=== PATIENT | male | born 1995 | race American Indian/Alaskan Native ===

== ENCOUNTER 2016-09-25 06:12 | Emergency (ER) | payer OTHER ==
[2016-09-25 06:26] VITALS: BP 139/92
[2016-09-25 07:28] LABS: Bilirubin,Urine NEG (Negative); Blood,Urine NEG (Negative); Ketones,Urine NEG (Negative); Leukocyte Esterase,Urine SM (Negative); Mucus,Urine 2+ /HPF; Nitrite,Urine NEG (Negative); Protein,Urine <15 mg/dL mg/dL (Negative); Urobilinogen,Urine < 2.0 mg/dL (<2.0)
--- NOTE | 2016-09-25 07:49 | Emergency Department Report ---
ED Female HPI - General Chief complaint: Urogenital-Male Stated complaint: POSS STD Time Seen by Provider: 09/25/16 07:45 Source: patient Mode of arrival: Ambulatory Limitations: No Limitations - Related Data Allergies Allergy/AdvReac Type Severity Reaction Status Date / Time No Known Allergies Allergy Verified 09/25/16 06:16 ED Review of Systems ROS: Stated complaint: POSS STD Other details as noted in HPI ED Past Medical Hx - Past Medical History Previous Medical History?: No - Surgical History Past Surgical History?: No - Social History Smoking Status: Never Smoker Substance Use Type: Alcohol ED Physical Exam - General Limitations: No Limitations ED Course Vital Signs 09/25/16 06:18 Temperature 98.1 F Pulse Rate 57 L Respiratory 18 Rate Blood Pressure 139/92 [Right] O2 Sat by Pulse 100 Oximetry Critical care attestation.: If time is entered above; I have spent that time in minutes in the direct care of this critically ill patient, excluding procedure time. ED Disposition Condition: Stable
--- NOTE | 2016-09-25 08:08 | Emergency Department Report ---
ED Male HPI - General Chief complaint: Urogenital-Male Stated complaint: POSS STD Time Seen by Provider: 09/25/16 07:45 Source: patient Mode of arrival: Ambulatory Limitations: No Limitations - History of Present Illness Initial comments: Patient here reported that he thinks that he's been exposed to STD. He said he' s been having milky white discharge for a few days. He told triage nurse for a few days. Told me that discharge is for a few weeks. Denies any fever or chills. Reports a burning urination at times. Denies Any abdominal or back pain. Denies any urinary urgency or frequency or testicular pain. MD Complaint: penile discharge, dysuria -: week(s) Severity scale (0 -10): 0 new sexual partner discharge, dysuria. denies: swelling, mass, rash, urinary retention, blood in urine, fever, nausea/vomiting, incontinence - Related Data Sexually active: Yes Allergies Allergy/AdvReac Type Severity Reaction Status Date / Time No Known Allergies Allergy Verified 09/25/16 06:16 ED Review of Systems ROS: Stated complaint: POSS STD Other details as noted in HPI Comment: All other systems reviewed and negative Constitutional: denies: chills, fever ENT: denies: throat pain Respiratory: no symptoms reported Cardiovascular: denies: chest pain, palpitations, edema, syncope Gastrointestinal: denies: abdominal pain, nausea, vomiting Genitourinary: dysuria, discharge. denies: urgency, frequency, hematuria, testicular pain, testicular mass Musculoskeletal: denies: back pain, arthralgia Skin: denies: rash Neurological: denies: headache, weakness ED Past Medical Hx - Past Medical History Previous Medical History?: No - Surgical History Past Surgical History?: No - Family History Family history: hypertension - Social History Smoking Status: Never Smoker Substance Use Type: Alcohol ED Physical Exam - General Limitations: No Limitations General appearance: alert, in no apparent distress - Head Head exam: Present: atraumatic, normocephalic, normal inspection - Eye Eye exam: Present: normal appearance, PERRL, EOMI Pupils: Present: normal accommodation - ENT ENT exam: Present: normal exam, normal orophraynx, mucous membranes moist, TM's normal bilaterally, normal external ear exam - Neck Neck exam: Present: normal inspection, full ROM. Absent: tenderness, meningismus, lymphadenopathy - Respiratory Respiratory exam: Present: normal lung sounds bilaterally. Absent: respiratory distress, chest wall tenderness - Cardiovascular Cardiovascular Exam: Present: normal rhythm, bradycardia (sinus bradycardia at 57 and asymptomatic), normal heart sounds - GI/Abdominal GI/Abdominal exam: Present: soft, normal bowel sounds. Absent: distended, tenderness, guarding, rebound, rigid - exam: Present: urethral discharge. Absent: testicular tenderness, scrotal swelling External exam: Absent: erythema, swelling, lesions, lacerations, ecchymosis, bleeding - Extremities Exam Extremities exam: Present: normal inspection, full ROM, normal capillary refill. Absent: tenderness, pedal edema, joint swelling, calf tenderness - Back Exam Back exam: Present: normal inspection, full ROM. Absent: tenderness, CVA tenderness (R), CVA tenderness (L), muscle spasm, paraspinal tenderness, vertebral tenderness, rash noted - Neurological Exam Neurological exam: Present: alert, oriented X3, normal gait - Psychiatric Psychiatric exam: Present: normal affect, normal mood - Skin Skin exam: Present: warm, dry, intact, normal color, rash ED Course Vital Signs 09/25/16 06:18 Temperature 98.1 F Pulse Rate 57 L Respiratory 18 Rate Blood Pressure 139/92 [Right] O2 Sat by Pulse 100 Oximetry - Reevaluation(s) Reevaluation #1: 09/25/16 08:28 Patient given Flagyl 2 g, Zithromax 1 g by mouth and Rocephin 250 mg by mouth. ED Medical Decision Making - Lab Data Lab Results 09/25/16 Range/Units Unknown Urine Color Yellow (Yellow) Urine Turbidity Clear (Clear) Urine pH 6.0 (5.0-7.0) Ur Specific [place] 1.014 (1.003-1.030) Urine Protein <15 mg/dl (Negative) mg/dL Urine Glucose (UA) Neg (Negative) mg/dL Urine Ketones Neg (Negative) mg/dL Urine Blood Neg (Negative) Urine Nitrite Neg (Negative) Urine Bilirubin Neg (Negative) Urine Urobilinogen < 2.0 (<2.0) mg/dL Ur Leukocyte Esterase Sm (Negative) Urine WBC (Auto) 5.0 (0.0-6.0) /HPF Urine RBC (Auto) 3.0 (0.0-6.0) /HPF U Epithel Cells (Auto) < 1.0 (0-13.0) /HPF Urine Mucus 2+ /HPF - Medical Decision Making ED course: Concerns for STD and penile discharge with painful urination that time.I discussed the patient that his urine analysis is normal and did not show any bladder or kidney infection. I discussed with him and impaired treatment versus waiting for STD testing. He chose to be treated in emergency room. Patient given Flagyl 2 g, Zithromax 1 g by mouth and Rocephin 250 mg by mouth. Discussed with him that he needs to practice safe sex and refrain from having sex over the next 10 days. I also asked him to refrain from drinking alcohol over the next week because medication that he takes for STD can have a negative reaction with alcohol. I encouraged patient to follow up with [facility] for STD testing in 7-10 days. Critical care attestation.: If time is entered above; I have spent that time in minutes in the direct care of this critically ill patient, excluding procedure time. ED Disposition Clinical Impression: Concern about STD in male without diagnosis, Counseling for sexually transmitted disease, Penile discharge, Dysuria Disposition: DISCHARGED TO HOME OR SELFCARE Is pt being admited?: No Does the pt Need Aspirin: No Condition: Stable Instructions: Safe Sex (ED), Sexually Transmitted Diseases (ED) Additional Instructions: refrain from having sex for the next 10 days Follow up at [facility] in 7-10 days. refrain from drinking alcohol over the next week as medication that were given for STD can have a negative reaction with alcohol. Practice safe sex Referrals: [facility] [Outside] - 7-10 days PRIMARY CARE, [Primary Care Provider] - 7-10 days Forms: Work/School Release Form(ED)
[2016-09-25] MEDS ORDERED: FLAGYL PO ONE (08:15)
[2016-09-25] MEDS ORDERED: ZITHROMAX PO ONE (08:15)
[2016-09-25] MEDS ORDERED: ROCEPHIN IM ONE (08:16)
[2016-09-25] MEDS ORDERED: XYLOCAINE 1% MPF 5 mL INFILTRATI ONE (08:16)
== END 2016-09-25 08:52 | disposition home or self-care (01) ==
LOC: ED 06:12
DX: R36.9 Urethral discharge, unspecified (principal); R30.0 Dysuria; Z70.8 Other sex counseling
CPT/HCPCS: 81001; 96372; 99283; J0696